=== PATIENT | female | born 1955 ===

== ENCOUNTER 2021-05-25 07:45 | Inpatient (IN) | payer OTHER ==
[~2021-05-25] VITALS: Ht 149.9 cm; Wt 53.5 kg
[2021-05-25] MEDS ORDERED: FORTAMET500 MG PO (08:57)
[2021-05-25] MEDS ORDERED: TOPROL XL25 M1 PO (08:57)
[2021-05-25] MEDS ORDERED: COZAAR50 MG PO (08:58)
[2021-05-25] MEDS ORDERED: GLIMEPIRIDE4 M1 PO (08:58)
[2021-05-25] MEDS ORDERED: PLAVIX75 MG PO (09:41)
[2021-05-30] MEDS ORDERED: IRBESARTAN150 MG (14:41)
[2021-05-30] MEDS ORDERED: ROSUVASTATIN CA40 MG (14:42)
[2021-06-01] MEDS ORDERED: OXYC1TAB9 PO (06:09)
[2021-06-01] MEDS ORDERED: BACTRIM DS TAB1 EACH PO (06:09)
[2021-06-01] MEDS ORDERED: INTEGRA PLUS C1 EACH PO (06:09)
[2021-06-01] MEDS ORDERED: XARELTO10 MG PO (06:09)
[2021-06-02] MEDS ORDERED: OXYC1TAB9 PO (06:36)
[2021-06-02] MEDS ORDERED: BACTRIM DS TAB1 EACH PO (06:36)
== END 2021-06-02 13:31 | DRG 470 ==
LOC: EDSTATUS 07:45 → ADM 07:45 → SURH 05-30 07:45 → O/R 05-30 09:28 → SURH 05-30 09:28
PROVIDERS: ADMIT Orthopaedic Surgery Sports Medicine; ATTEND Orthopaedic Surgery Sports Medicine
PROC: 0SRC0J9 Replacement of Right Knee Joint with Synthetic Substitute, Cemented, Open Approach (ICD-10-PCS; principal; 2021-05-30 12:15)
PROC: 30233N1 Transfusion of Nonautologous Red Blood Cells into Peripheral Vein, Percutaneous Approach (ICD-10-PCS; 2021-06-01)
DX: M17.11 Unilateral primary osteoarthritis, right knee (principal); Z20.822 Contact with and (suspected) exposure to COVID-19; D64.9 Anemia, unspecified